=== PATIENT | female | born 1985 | race Caucasian/White ===

== ENCOUNTER → 2021-12-04 | Outpatient (CLI) | payer OTHER | LOC: RAD 11-24 08:30 | DX: R13.12 Dysphagia, oropharyngeal phase (principal) | CPT/HCPCS: 74230; 92611-GN ==

== ENCOUNTER → 2022-03-05 | Outpatient (CLI) | payer OTHER | LOC: NM 12-16 09:00 → ECHO 12-16 11:00 → NM 12-29 09:00 → ECHO 12-29 11:45 → NM 01-26 09:00 | DX: R11.2 Nausea with vomiting, unspecified (principal); I47.1 Supraventricular tachycardia | CPT/HCPCS: 78264; A9541 ==

== ENCOUNTER → 2022-07-20 | Outpatient (CLI) | payer OTHER | LOC: RAD 09:30 | DX: R13.10 Dysphagia, unspecified (principal) | CPT/HCPCS: 74221 ==